=== PATIENT | female | born 1990 | race Caucasian/White ===

== ENCOUNTER 2017-01-21 16:21 | Emergency (ER) | payer OTHER ==
[~2017-01-21] VITALS: Ht 160 cm; Wt 83.9 kg
[~2017-01-21 16:21] MED LIST: MOTRIN800 MG PO; NORCO 325-5 MG1 TAB PO; PROCARDIA10 M1 PO
== END 2017-01-21 18:05 | disposition short-term general hospital (02) ==
LOC: RAD 16:21 → ER 16:21
DX: S93.402A Sprain of unspecified ligament of left ankle, initial encounter (principal); F32.9 Major depressive disorder, single episode, unspecified; Z88.5 Allergy status to narcotic agent; Z88.8 Allergy status to other drugs, medicaments and biological substances; X50.1XXA Overexertion from prolonged static or awkward postures, initial encounter